=== PATIENT | female | born 2000 ===

== ENCOUNTER 2023-01-30 22:20 | Emergency (ER) | payer BC, SELFPAY ==
[~2023-01-30] VITALS: Ht 162.6 cm; Wt 78.8 kg
[2023-01-30 22:21] VITALS: BP 134/76; TEMP 98.7; O2SAT 98
[2023-01-30] MEDS ORDERED: REGL5TAB2 PO (22:34)
[2023-01-30] MEDS ORDERED: MULTTAB20 PO (22:34)
[2023-01-30 23:04] LABS: HEMATOCRIT 35.8 % (36.0-47.0); HEMOGLOBIN 12.1 g/dl (12.0-15.5); MEAN CORPUSCULAR HEMOGLOBIN 28.9 pg (27.0-33.0); MEAN CORPUSCULAR HGB CONC 33.8 g/dl (32.0-36.5); MEAN CORPUSCULAR VOLUME 85.4 fl (80.0-96.0); PLATELET COUNT, AUTOMATED 282 10^3/uL (150-450); RED BLOOD COUNT 4.19 10^6/uL (4.00-5.40); WHITE BLOOD COUNT 12.2 10^3/uL (4.0-10.0)
[2023-01-30 23:27] LABS: BLOOD UREA NITROGEN 6 MG/DL (9-23); CALCIUM LEVEL 9.2 MG/DL (8.5-10.1); CARBON DIOXIDE LEVEL 22 MMOL/L (20-31); CHLORIDE LEVEL 105 MMOL/L (98-107); CREATININE FOR GFR 0.42 MG/DL (0.55-1.30); GLOMERULAR FILTRATION RATE > 60.0 (>60); GLUCOSE, FASTING 72 MG/DL (60-100); POTASSIUM SERUM 3.8 MMOL/L (3.5-5.1); SODIUM LEVEL 136 MMOL/L (136-145)
[2023-01-30 23:40] LABS: HCG, SERUM QUANTITATIVE 14958.1 MIU/ML (<4.2)
== END 2023-01-31 01:19 | disposition left against medical advice (07) ==
LOC: M ED 22:20
DX: Z53.21 Procedure and treatment not carried out due to patient leaving prior to being seen by health care provider (principal)

== ENCOUNTER 2023-01-30 23:25 | Outpatient (CLI) | payer BC ==
[~2023-01-30] VITALS: Ht 162.6 cm; Wt 79.0 kg
[~2023-01-30 23:25] MED LIST: MULTTAB20 PO; REGL5TAB2 PO
[2023-01-30 23:46] VITALS: BP 118/67
[2023-01-30] MEDS ORDERED: HOME MED LIST COMPLETE! XX SCH (23:50)
== END 2023-01-31 00:45 | disposition home or self-care (01) ==
LOC: M LDO 23:25
PROVIDERS: ATTEND Advanced Practice Midwife
DX: Z53.21 Procedure and treatment not carried out due to patient leaving prior to being seen by health care provider (principal)